=== PATIENT | female | born 1945 | race Caucasian/White ===

== ENCOUNTER 2019-09-24 20:54 | Emergency (ER) | payer MEDICARE, SELFPAY ==
[2019-09-24] VITALS (7 sets, daily range): BP systolic 114–164; BP diastolic 66–76; PULSE 74–88; RESP 16–21; TEMP 36.5; O2SAT 91–99; BMI 32.1
--- NOTE | 2019-09-24 21:25 | CTR_ITS ---
PROCEDURE INFORMATION: Exam: CT Abdomen And Pelvis With Contrast Exam date and time: 09/24/2019 9:37 PM Age: 74 years old Clinical indication: Abdominal tenderness and nausea and vomiting; Prior surgery; Surgery date: 6+ months; Surgery type: Appy; Patient HX: C/O abd pain w n/v and fever TECHNIQUE: Imaging protocol: Computed tomography of the abdomen and pelvis with intravenous contrast. Total DLP: 1148.58 mGy-cm Radiation optimization: All CT scans at this facility use at least one of these dose optimization techniques: automated exposure control; mA and/or kV adjustment per patient size (includes targeted exams where dose is matched to clinical indication); or iterative reconstruction. Contrast material: OMNI 300; Contrast volume: 95 ml; Contrast route: 20G; COMPARISON: No relevant prior studies available. FINDINGS: Lungs: Mosaic attenuation in both lung bases. Calcified granuloma in the right lower lobe. Right base atelectasis. Liver: Calcified granulomas in the liver. Gallbladder and bile ducts: Cholelithiasis. Bile ducts are normal. Pancreas: Normal. No ductal dilation. Spleen: Normal. No splenomegaly. Adrenals: Normal. No mass. Kidneys and ureters: Calcified granulomas 2 mm nonobstructing calculi in the left kidney. Subcentimeter right renal cyst. No follow-up recommended. Stomach and bowel: Diverticulosis of the distal colon. Moderate stool in the distal sigmoid colon and rectum. Appendix: The appendix is not visualized. Intraperitoneal space: Unremarkable. No free air. No significant fluid collection. Vasculature: Unremarkable. No abdominal aortic aneurysm. Lymph nodes: Calcified mediastinal and right hilar lymph nodes. Bladder: Unremarkable as visualized. Reproductive: Unremarkable as visualized. Bones/joints: Degenerative changes of the spine. No compression fracture. Soft tissues: Elevation of the right diaphragm. CT/CT abdomen pelvis w con* [id number] IMPRESSION: 1. No acute abnormality identified in the abdomen or pelvis. 2. Cholelithiasis. 3. Diverticulosis of the distal colon. 4. Mosaic attenuation in the lungs most likely relates to air trapping. Radiation Dose CTDIVOL = (mGy): DLP = 1148.58 (mGy-cm)
--- NOTE | 2019-09-24 21:25 | XRR_ITS ---
PROCEDURE INFORMATION: Exam: XR Chest, 1 View Exam date and time: 09/24/2019 9:27 PM Age: 74 years old Clinical indication: Cough; Additional info: Near syncope TECHNIQUE: Imaging protocol: XR of the chest Views: 1 view. COMPARISON: No relevant prior studies available. FINDINGS: Lungs: Mild atelectasis or scarring in the lung bases. The lungs are otherwise clear. Pleural space: Unremarkable. No pleural effusion. No pneumothorax. Heart/Mediastinum: Unremarkable. No cardiomegaly. Diaphragm: Elevation of the right diaphragm. Bones/joints: Unremarkable. XR/XR chest 1V portable [id number] IMPRESSION: No acute findings.
--- NOTE | 2019-09-24 21:25 | CTR_ITS ---
PROCEDURE INFORMATION: Exam: CT Head Without Contrast Exam date and time: 09/24/2019 9:37 PM Age: 74 years old Clinical indication: Syncope and collapse; Patient HX: HX of breast CA - syncope episode after vomitting; Additional info: Near syncope TECHNIQUE: Imaging protocol: Computed tomography of the head without contrast. Total DLP: 743.12 mGy-cm Radiation optimization: All CT scans at this facility use at least one of these dose optimization techniques: automated exposure control; mA and/or kV adjustment per patient size (includes targeted exams where dose is matched to clinical indication); or iterative reconstruction. COMPARISON: No relevant prior studies available. FINDINGS: Brain: Normal. No hemorrhage. Unremarkable white matter. No mass effect. Ventricles: Normal. No ventriculomegaly. Bones/joints: Unremarkable. No acute fracture. Sinuses: Visualized sinuses are unremarkable. No fluid levels. Mastoid air cells: Visualized mastoid air cells are well aerated. Soft tissues: Unremarkable. CT/CT head wo con* [id number] IMPRESSION: No acute intracranial abnormality. Radiation Dose CTDIVOL = (mGy): DLP = 743.12 (mGy-cm)
[2019-09-24] MEDS: sodium chloride 0.9% 1,000 ML 999 ML IV (21:37)
[2019-09-24] MEDS: metoclopramide 5 mg/mL SDV 2 mL 10 MG IVP (21:37)
[2019-09-24 21:40] LABS: Basophils # 0.1 10^3/uL (0.0-0.1); Basophils % 0.7 %; Eosinophils # 0.2 10^3/uL (0.0-0.8); Eosinophils % 2.2 %; Hematocrit 41.1 % (37.0-47.0); Hemoglobin 13.1 g/dL (11.5-15.3); Lymphocytes # 2.2 10^3/uL (0.8-4.8); Lymphocytes % 29.9 %; Mean Corpuscular HGB Conc 31.9 g/dL (30.0-36.0); Mean Corpuscular Hemoglobin 30.1 pg (28.0-34.0); Mean Corpuscular Volume 94.5 fL (81-99); Monocytes # 0.8 10^3/uL (0.2-0.9); Monocytes % 10.9 %; Neutrophils # 4.2 10^3/uL (1.8-7.7); Nucleated Red Blood Cells % 0 %; Platelet Count 192 10^3/cmm (130-400); Red Blood Count 4.35 10^6/uL (4.1-5.3); Red Cell Distribution Width 13.2 % (12.1-15.1); White Blood Count 7.4 10^3/uL (4.0-10.0)
--- NOTE | 2019-09-24 21:48 | W.ED.ABDPA2 ---
HPI - Abdominal Pain General: Chief Complaint: Abdominal Pain Stated Complaint: FEVER N/V Time Seen by Provider: 09/24/19 21:02 History of Present Illness: HPI narrative: 74-year-old lady with a history of some coronary disease with no intervention. She presents after having an episode of dizziness, intense nausea, and several episodes of vomiting following bending over to pick something up at home. There is been no fever, cough, significant shortness of breath, etc. No blood in the vomit. No diarrhea. No one else has had GI symptoms. She did have diaphoresis during the episode, but no chest pain. MD elicited complaint: abdominal pain Pertinent past history: none Onset (ago): hour(s) Pain Consistency: intermittent Location: Diffuse Severity: moderate Quality: cramping Radiation: none Exacerbating factors: movement Relieving factors: nothing Associated Symptoms: Reports vomiting; Denies constipation, diarrhea, dysuria, fever(s) and hematuria Review of Systems Const: Denies: fever Eyes: Denies: change in vision or blurry vision ENMT: Denies: painful swallowing, swelling of lips/tongue, dental pain, Change in hearing, nose bleeds, post nasal drip or facial/sinus pain Card: Denies: chest pain, palpitations, irregular heart rhythm, edema or swelling of feet/ankles Resp: Denies: shortness of breath, productive cough, non-productive cough or wheezing GI: Reports: vomiting; Denies: diarrhea or constipation : Denies: painful urination or blood in urine Musc: Denies: back pain Skin/Breast: Denies: rash, itching or redness Neuro: Denies: headache, dizziness or vertigo Psych: Denies: anxiety, visual hallucinations or auditory hallucinations PFSH ED PFSH: Social History Smoking and tobacco status: never smoked Physical Exam Const: GENERAL APPEARANCE: well developed ORIENTATION/CONSCIOUSNESS: Yes oriented to person, Yes oriented to place and Yes oriented to time HENMT: COMMON NORMALS: normocephalic, external ears normal and external nose normal HEAD & SCALP: normocephalic FACE & SINUS: normal facial exam NOSE: external nose normal and no nasal discharge EXTERNAL EAR: Yes external ears normal MOUTH: tongue normal Eye: COMMON NORMALS: PERRL, EOMs intact bilaterally and conjunctivae normal EYELID: eyelids normal CONJUNCTIVA: Yes conjunctivae normal PUPIL: Yes PERRL Neck/C-Spine: COMMON NORMALS: full ROM GENERAL: No tracheal deviation Chest: COMMONS NORMALS: inspection of chest normal CHEST: No tenderness Resp: COMMON NORMALS: clear to auscultation bilaterally EFFORT & INSPECTION: No tachypneic, No respiratory distress, No retractions, No uses accessory muscles and No tracheal deviation AUSCULTATION: clear to auscultation bilaterally, no rhonchi, no wheezes and lung sounds not diminished Cardio: COMMON NORMALS: regular rate and regular rhythm RATE: regular rate RHYTHM: regular rhythm HEART SOUNDS: murmur systolic PERIPHERAL PULSES: radial pulses present GI: INSPECTION: No abdominal distension AUSCULTATION: No hyperactive bowel sounds and No hypoactive bowel sounds PALPATION: Yes tender (diffuse), No guarding and No rigid PERCUSSION: no dullness to percussion and no tympanic to percussion : COMMON NORMALS: Yes no CVA tenderness BLADDER/KIDNEY EXAM: Yes no CVA tenderness Back/Pelvis: COMMON NORMALS: no CVA tenderness Neuro: SENSORIUM/ORIENTATION: Yes oriented to person, Yes oriented to place and Yes oriented to time Psych: COMMON NORMALS: mental status grossly normal Skin: COMMON NORMALS: no rashes or lesions noted GENERAL SKIN EXAM: no rashes or lesions noted Course Vital Signs: Vital signs: Vital Signs Temperature 97.7 F 09/24/19 20:58 Pulse Rate 88 09/24/19 23:30 Respiratory Rate 21 H 09/24/19 23:30 Blood Pressure 138/70 09/25/19 00:00 Pulse Oximetry 91 09/24/19 23:30 MDM - Abdominal Pain MDM Narrative: Medical decision making narrative: 74-year-old lady with a syncopal episode at home. She reports that she bent over, became diaphoretic, began to get sick at her stomach and passed out. Her son essentially reports a similar story. She never had any chest pain. She does have a history of a heart murmur, what sounds like aortic stenosis. She is recovered. She is done a lap around the ER, and feels essentially back to baseline. Her white blood cell count 7.4. Her chest x-ray is negative. Belly CT done because of the vomiting does not show any acute change. Head CT is negative. Her hemoglobin is 13. Her troponin did not change at 2 hours. Her EKG was not remarkable. She will be allowed home. She lives out of town, and will contact her family doctor on Thursday. Lab Data: Labs: Lab Results 09/24/19 09/24/19 09/24/19 Range/Units 21:00 21:00 21:00 WBC 7.4 (4.0-10.0) 10^3/ uL RBC 4.35 (4.1-5.3) 10^6/u L Hgb 13.1 (11.5-15.3) g/dL Hct 41.1 (37.0-47.0) % MCV 94.5 (81-99) fL MCH 30.1 (28.0-34.0) pg MCHC 31.9 (30.0-36.0) g/dL RDW 13.2 (12.1-15.1) % Plt Count 192 (130-400) 10^3/c mm MPV 13.0 H (7.4-10.4) fL Neut % (Auto) 56.0 % Lymph % (Auto) 29.9 % [place] % (Auto) 10.9 % Eos % (Auto) 2.2 % Baso % (Auto) 0.7 % Neut # (Auto) 4.2 (1.8-7.7) 10^3/u L Lymph # (Auto) 2.2 (0.8-4.8) 10^3/u L [place] # (Auto) 0.8 (0.2-0.9) 10^3/u L Eos # (Auto) 0.2 (0.0-0.8) 10^3/u L Baso # (Auto) 0.1 (0.0-0.1) 10^3/u L Nucleated RBC % (a uto) 0 % Nucleated RBCs # 0.0 /100WBC Sodium 145 (136-145) mmol/L Potassium 4.0 (3.5-5.1) mmol/L Chloride 107 (98-107) mmol/L Carbon Dioxide 27 (22-29) mmol/L Anion Gap 15.0 (5-19) BUN 23 (8-23) mg/dL Creatinine 0.9 (0.5-0.9) mg/dL Glucose 113 (65-115) mg/dL Calculated Osmolal ity 298 H (285-295) mOsm/k g Lactate (0.5-2.2) mmol/L Calcium 10.0 (8.5-10.5) mg/dL Total Bilirubin 0.4 (0.15-1.2) mg/dL AST 19 (0-32) U/L ALT 17 (0-33) U/L Alkaline Phosphata se 57 (35-105) IU/L Creatine Kinase 104 (26-192) U/L Troponin T Baselin e 7 (0-10) ng/mL Troponin T 120 Min [place] (0-10) ng/mL Delta Troponin T (0-10) ABS# C-Reactive Protein 0.8 (0.0-4.9) mg/L Total Protein 6.4 L (6.6-8.7) g/dL Albumin 4.2 (3.5-5.2) g/dL Globulin 2.2 (1.3-4.6) g/dL Urine Color (Yellow) Urine Appearance (CLEAR) Urine pH (5-7) Ur Specific Gravit y (1.005-1.030) Urine Protein (Negative) Urine Glucose (UA) (Normal) Urine Ketones (Negative) Urine Blood (Negative) Urine Nitrate (Negative) Urine Bilirubin (NEGATIVE) Urine Urobilinogen (Negative) mg/dL Ur Leukocyte Shelia ase (Negative) Urine RBC (0-2) /hpf Urine WBC (0-5) /hpf Ur Squamous Epith Cells (0-5) Urine Bacteria (NONE) 09/24/19 09/24/19 09/24/19 Range/Units 21:30 21:50 23:12 WBC (4.0-10.0) 10^3/ uL RBC (4.1-5.3) 10^6/u L Hgb (11.5-15.3) g/dL Hct (37.0-47.0) % MCV (81-99) fL MCH (28.0-34.0) pg MCHC (30.0-36.0) g/dL RDW (12.1-15.1) % Plt Count (130-400) 10^3/c mm MPV (7.4-10.4) fL Neut % (Auto) % Lymph % (Auto) % [place] % (Auto) % Eos % (Auto) % Baso % (Auto) % Neut # (Auto) (1.8-7.7) 10^3/u L Lymph # (Auto) (0.8-4.8) 10^3/u L [place] # (Auto) (0.2-0.9) 10^3/u L Eos # (Auto) (0.0-0.8) 10^3/u L Baso # (Auto) (0.0-0.1) 10^3/u L Nucleated RBC % (a uto) % Nucleated RBCs # /100WBC Sodium (136-145) mmol/L Potassium (3.5-5.1) mmol/L Chloride (98-107) mmol/L Carbon Dioxide (22-29) mmol/L Anion Gap (5-19) BUN (8-23) mg/dL Creatinine (0.5-0.9) mg/dL Glucose (65-115) mg/dL Calculated Osmolal ity (285-295) mOsm/k g Lactate 1.2 (0.5-2.2) mmol/L Calcium (8.5-10.5) mg/dL Total Bilirubin (0.15-1.2) mg/dL AST (0-32) U/L ALT (0-33) U/L Alkaline Phosphata se (35-105) IU/L Creatine Kinase (26-192) U/L Troponin T Baselin e (0-10) ng/mL Troponin T 120 Min [place] 6.86 (0-10) ng/mL Delta Troponin T -0.14 L (0-10) ABS# C-Reactive Protein (0.0-4.9) mg/L Total Protein (6.6-8.7) g/dL Albumin (3.5-5.2) g/dL Globulin (1.3-4.6) g/dL Urine Color Yellow (Yellow) Urine Appearance Cloudy (CLEAR) Urine pH 5 (5-7) Ur Specific Gravit y 1.030 (1.005-1.030) Urine Protein 3+ H (Negative) Urine Glucose (UA) Norm (Normal) Urine Ketones Negative (Negative) Urine Blood 3+ H (Negative) Urine Nitrate Negative (Negative) Urine Bilirubin Neg (NEGATIVE) Urine Urobilinogen Norm (Negative) mg/dL Ur Leukocyte Shelia ase Negative (Negative) Urine RBC >100 H (0-2) /hpf Urine WBC 25-40 H (0-5) /hpf Ur Squamous Epith Cells 0-4 H (0-5) Urine Bacteria 2+ H (NONE) Discharge Plan Discharge Patient Disposition: Home, Self-Care Clinical Impression: Syncope Qualifiers: Syncope type: unspecified Qualified Code(s): R55 - Syncope and collapse Condition: Stable Prescriptions: No Action atorvastatin 40 mg Tablet 40 mg PO DAILY RF: 0 carvedilol 25 mg Tablet 12.5 mg PO BID RF: 0 ranitidine HCl 300 mg Tablet 300 mg PO DAILY RF: 0 levothyroxine 100 mcg Tablet 100 mcg PO DAILY RF: 0 ramipril 10 mg Capsule 10 mg PO DAILY RF: 0 aspirin 325 mg Tablet 325 mg PO DAILY RF: 0 CoQ-10 30 mg Capsule 30 mg PO DAILY RF: 0 Calcium 600 + D(3) 600 mg calcium- 200 unit Capsule 600 cap PO DAILY RF: 0 Discharge Orders: Discharge Order (Routine); Ordered 09/25/19 Ordered By: Deny Cardona Discharge Diet: Advance as tolerated Discharge Activity: Limit activity as instructed Patient Instructions: Syncope (ED) Activity Restrictions/Additional Instructions: No strenuous activity until cleared by your doctor. Return for any episodes of chest pain, repeated episodes of syncope or passing out, worsening vomiting or diarrhea, any other concerning symptoms. Coding Level of Care Code ED Assistant Media Buyer for [employer] Fwd Exam Comprehensive
[2019-09-24 22:00] LABS: Lactate (Lactic Acid level) 1.2 mmol/L (0.5-2.2)
[2019-09-24 22:01] LABS: Alanine Aminotransferase 17 U/L (0-33); Albumin Level 4.2 g/dL (3.5-5.2); Alkaline Phosphatase 57 IU/L (35-105); Aspartate Amino Transferase 19 U/L (0-32); Blood Urea Nitrogen 23 mg/dL (8-23); C Reactive Protein 0.8 mg/L (0.0-4.9); Carbon Dioxide 27 mmol/L (22-29); Chloride 107 mmol/L (98-107); Creatine Phosphokinase 104 U/L (26-192); Globulin 2.2 g/dL (1.3-4.6); Glucose 113 mg/dL (65-115); Osmolality Calculated 298 mOsm/kg (285-295); Sodium 145 mmol/L (136-145); Total Bilirubin 0.4 mg/dL (0.15-1.2); Total Protein 6.4 g/dL (6.6-8.7)
[2019-09-24 22:04] LABS: Troponin(5th) Baseline 7 ng/mL (0-10)
[2019-09-24 22:05] LABS: Add Urine Culture? Yes; Add Urine Microscopic? YES; Bacteria Urine 2+; Bilirubin Urine Neg (NEGATIVE); Blood Urine 3+ (Negative); Glucose Urine UA Norm (Normal); Ketones Urine Negative (Negative); Leukocyte Esterase Urine Negative (Negative); Nitrate Urine Negative (Negative); Protein Urine 3+ (Negative); RBC Urine >100 /hpf (0-2); Squamous Epithelial Cell Urine 0-4 (0-5); Urine Appearance Cloudy (CLEAR); Urine Color Yellow (Yellow); Urobilinogen Urine Norm (Negative); WBC Urine 25-40 /hpf (0-5); pH Urine 5 (5-7)
[2019-09-24] MEDS: iohexol 300 mg/mL 100 mL Btl IV (22:22)
--- NOTE | 2019-09-24 23:27 | ECG_ITS ---
Measurements Intervals [place] Rate: 76 P: 79 MO: 144 QRS: 69 QRSD: 83 T: -89 QT: 388 QTc: 438 SINUS RHYTHM LEFT VENTRICULAR HYPERTROPHY AND ST-T CHANGE [VOLTAGE CRITERIA PLUS ST/T ABNORMALITY] No previous ECG available for comparison Electronically Signed On 09-25-2019 8:33:08 CDT by Nancy Griffin M.D. [email or web address]
[2019-09-24 23:43] LABS: Troponin 5 2HR 6.86 ng/mL (0-10)
[2019-09-25] VITALS: BP 138/70
[2019-09-25 00:08] LABS: Troponin 5 2HR Delta -0.14 ABS# (0-10)
== END 2019-09-25 00:43 | disposition home or self-care (01) ==
PROVIDERS: Emergency Provider Emergency Medicine
DX: R55 Syncope and collapse (principal)
CPT/HCPCS: 12345; 70450; 71045; 74177; 80053; 81001; 82550; 83605; 84484; 85025; 86140; 87086; 93005; 96361; 96374; 99283; 99284; J2765; J7030; Q9967